=== PATIENT | female | born 1965 | race Caucasian/White ===

== ENCOUNTER 2018-10-24 13:09 | Emergency (ER) | payer OTHER ==
--- NOTE | 2018-10-24 14:16 | RAD REPORT ---
EXAM DESCRIPTION: RAD - Hip Right 2 View - 10/24/2018 2:11 pm CLINICAL HISTORY: PAIN History of fall. COMPARISON: No comparisons FINDINGS: No bone or joint abnormality is detected.
[2018-10-24] MEDS ORDERED: DEXAMETHASONE 4 MG TAB ONE (15:35)
[2018-10-24] MEDS ORDERED: DEXAMETHASONE 4 MG/ML VIAL ONE (15:36)
[2018-10-24] MEDS ORDERED: KETOROLAC 30 MG/ML INJ ONE (15:36)
[2018-10-24] MEDS ORDERED: CODEINE 30MG/APAP 300MG TAB ONE (15:36)
--- NOTE | 2018-10-24 15:47 | EDPHYS ---
Physician Documentation [facility] Name: Marianna Sharma Age: 53 yrs Sex: Female : 1965 Arrival Date: 10/24/2018 Time: 13:10 Bed 14 Private MD: ED Physician Олег Collins HPI: 10/24 15:00 This 53 yrs old Female presents to ER via Ambulatory with complaints of Back pm1 Pain, Right Hip Pain. 15:00 The patient presents with pain that is acute. The symptoms are located in the Right pm1 iliac crest. Onset: The symptoms/episode began/occurred 3 day(s) ago. The pain does not radiate. Associated signs and symptoms: Pertinent negatives: abdominal pain, chest pain, constipation, dysuria, fever, nausea, numbness, tingling, vomiting, weakness. The problem was sustained onset after massage machine . Modifying factors: The patient symptoms are alleviated by rest. Severity of symptoms: in the emergency department the symptoms are actually worse. The patient has not experienced similar symptoms in the past. Historical: - Allergies: 13:35 No Known Allergies; sv - PMHx: 13:35 None; sv - PSHx: 13:35 Hysterectomy; Tonsillectomy; sv - Immunization history:: Adult Immunizations unknown. - Social history:: Smoking status: unknown. - Ebola Screening: : No symptoms or risks identified at this time. ROS: 15:00 Constitutional: Negative for fever, chills, and weight loss, Eyes: Negative for injury, pm1 pain, redness, and discharge, ENT: Negative for injury, pain, and discharge, Neck: Negative for injury, pain, and swelling, Cardiovascular: Negative for chest pain, palpitations, and edema, Respiratory: Negative for shortness of breath, cough, wheezing, and pleuritic chest pain, Abdomen/GI: Negative for abdominal pain, nausea, vomiting, diarrhea, and constipation, : Negative for injury, bleeding, discharge, and swelling, MS/Extremity: Negative for injury and deformity, Skin: Negative for injury, rash, and discoloration. 15:00 Neuro: Negative for headache, weakness, numbness, tingling, and seizure. 15:00 Back: Positive for pain to right iliac crest. Exam: 15:00 Constitutional: This is a well developed, well nourished patient who is awake, alert, pm1 and in no acute distress. Head/Face: Normocephalic, atraumatic. Eyes: Pupils equal round and reactive to light, extra-ocular motions intact. Lids and lashes normal. Conjunctiva and sclera are non-icteric and not injected. Cornea within normal limits. Periorbital areas with no swelling, redness, or edema. ENT: Nares patent. No nasal discharge, no septal abnormalities noted. Tympanic membranes are normal and external auditory canals are clear. Oropharynx with no redness, swelling, or masses, exudates, or evidence of obstruction, uvula midline. Mucous membranes moist. Neck: Trachea midline, no thyromegaly or masses palpated, and no cervical lymphadenopathy. Supple, full range of motion without nuchal rigidity, or vertebral point tenderness. No Meningismus. Chest/axilla: Normal chest wall appearance and motion. Nontender with no deformity. No lesions are appreciated. Cardiovascular: Regular rate and rhythm with a normal S1 and S2. No gallops, murmurs, or rubs. Normal PMI, no JVD. No pulse deficits. Respiratory: Lungs have equal breath sounds bilaterally, clear to auscultation and percussion. No rales, rhonchi or wheezes noted. No increased work of breathing, no retractions or nasal flaring. Abdomen/GI: Soft, non-tender, with normal bowel sounds. No distension or tympany. No guarding or rebound. No evidence of tenderness throughout. 15:00 Skin: Warm, dry with normal turgor. Normal color with no rashes, no lesions, and no evidence of cellulitis. MS/ Extremity: Pulses equal, no cyanosis. Neurovascular intact. Full, normal range of motion. 15:00 Back: normal spinal alignment noted, vertebral tenderness, is not appreciated, tenderness to posterior right iliac crest. 15:00 Neuro: Orientation: is normal, Motor: is normal, moves all fours, strength is normal. Vital Signs: 13:35 BP 115 / 87; Pulse 91; Resp 16; Temp 98.8; Pulse Ox 100% ; Weight 59.87 kg; Height 5 sv ft. 2 in. (157.48 cm); Pain 9/10; 13:35 Body Mass Index 24.14 (59.87 kg, 157.48 cm) sv MDM: 14:27 Patient medically screened. pm1 15:23 Data reviewed: vital signs. Data interpreted: Pulse oximetry: on room air is 100 %. pm1 Interpretation: normal. Counseling: I had a detailed discussion with the patient and/or guardian regarding: the historical points, exam findings, and any diagnostic results supporting the discharge/admit diagnosis, radiology results, the need for outpatient follow up, to return to the emergency department if symptoms worsen or persist or if there are any questions or concerns that arise at home. 10/24 13:36 Order name: Hip Right 2 View XRAY; Complete Time: 14:29 sv Administered Medications: 15:49 Drug: Decadron 10 mg Route: IM; Site: right vastus lateralis; ph 16:00 Follow up: Response: No adverse reaction ph 15:49 Drug: TORadol 60 mg Route: IM; Site: right vastus lateralis; ph 16:00 Follow up: Response: No adverse reaction ph 15:50 Drug: Tylenol #3 (300 mg-30 mg) 2 tabs Route: PO; ph 16:00 Follow up: Response: No adverse reaction ph Disposition: 10/24/18 15:46 Discharged to Home. Impression: Low back pain. - Condition is Stable. - Discharge Instructions: Back Pain, Adult, Contusion. - Prescriptions for Naprosyn 500 mg Oral Tablet - take 1 tablet by ORAL route 2 times per day take with food; 30 tablet. Tylenol- Codeine #3 300-30 mg Oral Tablet - take 2 tablets by ORAL route every 6 hours As needed; 20 tablet. Medrol (Job) 4 mg Oral Tablets, Dose Pack - take 1 tablet by ORAL route as directed - follow package instructions; 1 packet. - Work release form, Medication Reconciliation Form, Thank You Letter, Prescription Opioid Use form. - Follow up: Emergency Department; When: As needed; Reason: Worsening of condition. Follow up: Private Physician; When: 2 - 3 days; Reason: Recheck today's complaints, Continuance of care, Re-evaluation by your physician. - Problem is new. - Symptoms have improved. Addendum: 10/27/2018 06:57 Co-signature as Attending Physician, Олег Collins MD I agree with the assessment and k dr plan of care. Signatures: Dispatcher [employer] Aubree Oquendo RN RN sv Rittger, Kevin, MD MD kdr Micheline Marie RN RN ph Norm Miller, [employer] ATTENDANT pm1 Corrections: (The following items were deleted from the chart) 10/24 16:10 15:46 10/24/2018 15:46 Discharged to Home. Impression: Low back pain. Condition is ph Stable. Forms are Medication Reconciliation Form, Thank You Letter, Antibiotic Education, Prescription Opioid Use. Follow up: Emergency Department; When: As needed; Reason: Worsening of condition. Follow up: Private Physician; When: 2 - 3 days; Reason: Recheck today's complaints, Continuance of care, Re-evaluation by your physician. Problem is new. Symptoms have improved. pm1
--- NOTE | 2018-10-24 15:47 | ER ---
Nurse's Notes [facility] Name: Marianna Sharma Age: 53 yrs Sex: Female : 1965 Arrival Date: 10/24/2018 Time: 13:10 Bed 14 Private MD: Diagnosis: Low back pain Presentation: 10/24 13:33 Presenting complaint: Patient states: right hip pain started Saturday, reports falling sv onto her hip about 6-8 weeks ago. Transition of care: patient was not received from another setting of care. Onset of symptoms was October 22, 2018. Care prior to arrival: None. 13:33 Method Of Arrival: Ambulatory sv 13:33 Acuity: JL 4 sv 15:56 Risk Assessment: Do you want to hurt yourself or someone else? Patient reports no ph desire to harm self or others. Initial Sepsis Screen: Does the patient meet any 2 criteria? No. Patient's initial sepsis screen is negative. Does the patient have a suspected source of infection? No. Patient's initial sepsis screen is negative. Triage Assessment: 13:36 General: Appears in no apparent distress. uncomfortable, Behavior is calm, cooperative, sv appropriate for age. Pain: Complains of pain in right hip. Neuro: Level of Consciousness is awake, alert, obeys commands, Oriented to person, place, time, situation, Gait is steady, Speech is normal. Respiratory: Respiratory effort is even, unlabored, Respiratory pattern is regular, symmetrical. Historical: - Allergies: 13:35 No Known Allergies; sv - PMHx: 13:35 None; sv - PSHx: 13:35 Hysterectomy; Tonsillectomy; sv - Immunization history:: Adult Immunizations unknown. - Social history:: Smoking status: unknown. - Ebola Screening: : No symptoms or risks identified at this time. Screenin:51 Abuse screen: Denies threats or abuse. Denies injuries from another. Nutritional ph screening: No deficits noted. Tuberculosis screening: No symptoms or risk factors identified. Fall Risk None identified. Assessment: 14:15 General: Appears in no apparent distress. uncomfortable, slender, well groomed, ph Behavior is calm, cooperative, appropriate for age. Pain: Complains of pain in right low back and right hip. Neuro: Level of Consciousness is awake, alert, obeys commands, Oriented to person, place, time, situation. Cardiovascular: Capillary refill < 3 seconds in bilateral fingers Patient's skin is warm and dry. Respiratory: Airway is patent Respiratory effort is even, unlabored. GI: No signs and/or symptoms were reported involving the gastrointestinal system. Patient currently denies abdominal pain, nausea, vomiting. Derm: Skin is intact, is healthy with good turgor, Skin is pink, warm \T\ dry. Musculoskeletal: Circulation, motion, and sensation intact. Range of motion: limited in all extremities. 15:48 Reassessment: Patient appears in no apparent distress at this time. Patient and/or ph family updated on plan of care and expected duration. Pain level reassessed. Patient is alert, oriented x 3, equal unlabored respirations, skin warm/dry/pink. aWAITING 15 MIN SHOT TIME BEFORE D/C. Vital Signs: 13:35 BP 115 / 87; Pulse 91; Resp 16; Temp 98.8; Pulse Ox 100% ; Weight 59.87 kg; Height 5 sv ft. 2 in. (157.48 cm); Pain 9/10; 13:35 Body Mass Index 24.14 (59.87 kg, 157.48 cm) sv ED Course: 13:10 Patient arrived in ED. as 13:35 Triage completed. sv 13:35 Arm band placed on. sv 14:03 Micheline Marie, MYLES is Primary Nurse. ph 14:11 Hip Right 2 View XRAY In Process Unspecified. EDMS 14:22 Norm Miller NP is PHCP. pm1 14:22 Олег Collins MD is Attending Physician. pm1 15:56 No provider procedures requiring assistance completed. Patient did not have IV access ph during this emergency room visit. 15:57 Patient has correct armband on for positive identification. Bed in low position. Call ph light in reach. Side rails up X 1. Administered Medications: 15:49 Drug: Decadron 10 mg Route: IM; Site: right vastus lateralis; ph 16:00 Follow up: Response: No adverse reaction ph 15:49 Drug: TORadol 60 mg Route: IM; Site: right vastus lateralis; ph 16:00 Follow up: Response: No adverse reaction ph 15:50 Drug: Tylenol #3 (300 mg-30 mg) 2 tabs Route: PO; ph 16:00 Follow up: Response: No adverse reaction ph Outcome: 15:46 Discharge ordered by . pm1 16:10 Patient left the ED. ph 16:10 Discharged to home ambulatory, with significant other. ph 16:10 Condition: good 16:10 Discharge instructions given to patient, Instructed on discharge instructions, follow up and referral plans. medication usage, Demonstrated understanding of instructions, follow-up care, medications, Prescriptions given X 3. Signatures: Dispatcher [employer] Aubree Oquendo RN RN sv Martinez, Amelia as Hall, Patricia, RN RN ph Marinas, Patrick, CONCRETE FLOAT MAKER CONCRETE FLOAT MAKER pm1
== END 2018-10-24 16:10 | disposition home or self-care (01) ==
LOC: ER 13:09
DX: M54.5 Low back pain (principal)
CPT/HCPCS: 96372; 99283